=== PATIENT | male | born 1980 | race Two or more races ===

== ENCOUNTER 2025-02-27 19:00 | Emergency (ER) | payer MEDICAID ==
[~2025-02-27] VITALS: Ht 167.6 cm; Wt 90.0 kg
[~2025-02-27 19:00] MED LIST: NO HOME MEDS
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
[2025-02-27 19:17] VITALS: BP 149/98; PULSE 103; O2SAT 99
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
[2025-02-27] MEDS ORDERED: HYDR-3965 PO (22:16)
[2025-02-27] MEDS ORDERED: ONDA-245 PO (22:16)
[2025-02-27 22:25] VITALS: RESP 18
[2025-02-27] MEDS: ketorolac trometh 30MG/ML vial 30 MG/ML VIAL IM ONE (22:25)
[2025-02-27 22:30] VITALS: TEMP 96.8
== END 2025-02-27 22:30 | disposition home or self-care (01) ==
LOC: ER 19:01
DX: S39.012A Strain of muscle, fascia and tendon of lower back, initial encounter (principal); F12.90 Cannabis use, unspecified, uncomplicated; J45.909 Unspecified asthma, uncomplicated; X58.XXXA Exposure to other specified factors, initial encounter; Y93.89 Activity, other specified; Y92.89 Other specified places as the place of occurrence of the external cause; Y99.8 Other external cause status
CPT/HCPCS: 72100; 73502; 96372; 99284; J1885